=== PATIENT | female | born 1950 | race Caucasian/White ===

== ENCOUNTER 2019-06-21 20:52 | Emergency (ER) | payer MEDICARE ==
[~2019-06-21] VITALS: Ht 165.1 cm; Wt 79.3 kg
[~2019-06-21 20:52] MED LIST: ATROPINE SYRINGE 0.1 MG/ML, 10ML ONE; DEXTROSE 50%, 50ML SYRINGE ONE; EPINEPHRINE SYRINGE 0.1 MG/ML, 10ML ONE; NALOXONE 1 MG/ML, 2ML ONE
--- NOTE | 2019-06-21 20:52 | NUR ---
BIB AMBULANCE FROM [facility] S/P CARDIAC ARREST, ARRIVES WITH ROSC, INTUBATED WITH ETT/BMV IN PROGRESS. PALPABLE WEAK FEMORAL PULSES, UNABLE TO PALPATE DISTAL PULSES. PUPILS FIXED, NON-REACTIVE. EKG COMPLETED. CPR ON SCENE, 2 DOSES OF EPI, 1000ML NS, IO IN LLE BY EMS. FSBS 108 ON SCENE. LAST WELL KNOWN APPROX 2009 PER STAFF AT [facility] WHO WENT TO ROUND ON PT AND FOUND HER UNRESPONSIVE, THEY INITIATED CPR, AND APPLIED AED WITH NO SHOCKS ADVISED PER EMS. 7.0 ETT PLACED BY EMS WITH 22CM TAWANDA AT LIPS, END TITAL CO2 IN PLACE. PT REPORTED TO BE IN ASYSTOLE FOR 40 MIN ROPING MACHINE TENDER TO ER. ALL MONITORS, CONT NIBP, PULSE OX, CARDIAC, PACER PADS ALL IN PLACE. RT CYRUS AT BEDSIDE. ASSESSMENT COMPLETED.
--- NOTE | 2019-06-21 20:59 | NUR ---
LATE ENTRY 2051: DR. MILLER AT BEDSIDE FOR EVALUATION 2058-PT WITH NO PALPABLE PULSES, CPR INITIATED IMMEDIATELY. CODE CALLED. SEE CODE SHEETS FOR DOCUMENTATION
[2019-06-21] MEDS ORDERED: SODIUM CHLORIDE 0.9% 1,000ML IVBOLUS ONE (21:30)
[2019-06-21] MEDS ORDERED: PLEASE ENTER HEIGHT AND WEIGHT MC SCH (21:30)
[2019-06-21] MEDS ORDERED: ALTEPLASE 1 MG/ML ONE (21:40)
--- NOTE | 2019-06-21 21:49 | NUR ---
UNABLE TO CHART TPA ORDER IN EMAR. PER DR. MILLER AND PHARMACY AT BEDSIDE. PT MEDICATED WITH 60MG TPA BOLUS PER DR. MILLER AND DR. GARCIA.
[2019-06-21] MEDS ORDERED: EPINEPHRINE 8 MG in SODIUM CHLORIDE 0.9% 242 ML IV PRN (22:00)
--- NOTE | 2019-06-21 22:01 | NUR ---
TIME OF [address] MILLER AT BEDSIDE. TO CALL DONOR NETWORK, NOTIFY LEAD PYTHON DEVELOPER PER ERP. DR. MILLER AT BEDSIDE DICUSSING CODE/POC WITH PT FAMILY.
[2019-06-21] MEDS ORDERED: ALTEPLASE IV ONE ×2 (22:12→22:30)
[2019-06-21] MEDS ORDERED: EPINEPHRINE SYRINGE 0.1 MG/ML, 10ML ONE (22:13)
[2019-06-21] MEDS ORDERED: CODE BLUE RESPONSE XX ONE (22:13)
[2019-06-21] MEDS ORDERED: SODIUM BICARB 8.4%, 50ML SYRINGE ONE (22:13)
--- NOTE | 2019-06-21 22:22 | NUR ---
DONOR NETWORK [facility] CONTACTED PER POLICY, SPOKE WITH EVERETTE MIRANDA, PT NOT ELIGIBLE DONOR. REFERRAL NUMBER [id number]
[2019-06-21] MEDS ORDERED: SODIUM BICARBONATE 1 MEQ/ML, 50ML VIAL IVPush ONE ×2 (22:30)
[2019-06-21] MEDS ORDERED: EPINEPHRINE 1 MG/ML, 1ML IVPush ONE (22:30)
[2019-06-21] MEDS ORDERED: NALOXONE 1 MG/ML, 2ML IVPush ONE (22:30)
[2019-06-21] MEDS ORDERED: ATROPINE 1 MG/ML, 1ML IVPush ONE (22:30)
--- NOTE | 2019-06-21 22:45 | NUR ---
DAUGHTER AND NEXT OF KIN KACIE BOLANOS [phone] SIGNED CONSENT FOR RELEASE OF BODY AND DECLINED OWN MORTUARY, REQUESTED [employer]JECT [employer]INEER MORTUARY BE USED. [employer] MORTUARY [facility] .
--- NOTE | 2019-06-21 22:59 | NUR ---
DESTINATION SIGN REPAIRER NOTIFIED, SPOKE WITH CURTIS, TO CALL BACK AND NOTIFY OF CASE NUMBER.
--- NOTE | 2019-06-21 23:13 | NUR ---
CURTIS GUZMAN FROM [facility]OU[facility] SETTER OFFICE RETURNED CALL, CASE ACCEPTED, CASE #[id number].
--- NOTE | 2019-06-22 00:12 | NUR ---
LATE ENTRY 2345-ARTIST SCIENTIFIC CURTIS AT BEDSIDE. PT TAGGED BY ARTIST SCIENTIFIC WITH VERIFICATION FROM THIS RN TO PT IDENTIFIERS. PT RELE[facility]ED TO [facility] PER ARTIST SCIENTIFIC CURTIS AT THIS TIME.
== END 2019-06-22 00:47 | disposition expired ==
LOC: MERGE 20:52 → EDBD 20:52 → ED 22:17
DX: I46.9 Cardiac arrest, cause unspecified (principal); K21.9 Gastro-esophageal reflux disease without esophagitis; E78.5 Hyperlipidemia, unspecified; I12.9 Hypertensive chronic kidney disease with stage 1 through stage 4 chronic kidney disease, or unspecified chronic kidney disease; N18.3 Chronic kidney disease, stage 3 (moderate)
CPT/HCPCS: 36600; 71045; 82803; 92950; 93005; 96365; 96375; 99291; 99292; J0171; J0461; J2310; J2997; J7030; J7050